=== PATIENT | female | born 1990 | race African-American/Black ===

== ENCOUNTER 2019-11-14 00:43 | Observation (INO) | payer OTHER ==
[~2019-11-14] VITALS: Ht 180.3 cm; Wt 108.9 kg
[2019-11-14 01:26] VITALS: BP 105/54
[2019-11-14 02:41] LABS: Basophils # (auto) 0 10 ^3/uL (0-0.2); Basophils % (auto) 0.3 % (0.0-2.0); Eosinophils # (auto) 0.1 10 ^3/uL (0-0.8); Eosinophils % (auto) 0.9 % (0.0-7.0); Hematocrit 35.2 % (36.0-46.0); Lymphocytes # (auto) 1.5 10 ^3/uL (0.4-5.4); Mean Corpuscular Hemoglobin 29.3 pg (28.0-32.0); Mean Corpuscular Hgb Conc. 34.2 g/dL (32.0-36.0); Mean Corpuscular Volume 85.9 fL (80.0-100.0); Monocytes % (auto) 9.4 % (0.0-12.0); Neutrophils % (auto) 75.4 % (37.0-80.0); Nucleated Red Blood Cells % 0.1 %; Platelet Count (auto) 260 10^3/uL (140-450); Red Cell Distribution Width 13.8 % (11.8-14.3); White Blood Cell 10.5 10^3/uL (4.4-10.8)
[2019-11-14 02:51] LABS: Albumin 2.4 g/dL (3.4-5.0); BUN/Creatinine Ratio 5.5; Calcium 8.4 mg/dL (8.5-10.1); Potassium 3.2 mmol/L (3.5-5.1)
[2019-11-14 03:03] LABS: Bilirubin, Total 0.2 mg/dL (0.2-1.0); Total Protein 6.7 g/dL (6.4-8.2)
[2019-11-14] MEDS ORDERED: POTASSIUM CHL 20 Meq TABLET PO ONE (03:30)
== END 2019-11-14 03:55 | disposition home or self-care (01) | DRG 833 ==
LOC: EDBD 00:43 → ER 00:46 → LDRP 02:00
PROVIDERS: ADMIT Specialist; ATTEND Specialist
DX: O99.352 Diseases of the nervous system complicating pregnancy, second trimester (principal); R56.9 Unspecified convulsions; O30.002 Twin pregnancy, unspecified number of placenta and unspecified number of amniotic sacs, second trimester; Z3A.26 26 weeks gestation of pregnancy; W19.XXXA Unspecified fall, initial encounter; Y93.89 Activity, other specified; Y92.89 Other specified places as the place of occurrence of the external cause; Y99.8 Other external cause status
CPT/HCPCS: 36415; 59025; 80053; 81002; 85025; 99284; G0378